=== PATIENT | female | born 1945 | race Two or more races ===

== ENCOUNTER 2024-09-11 11:32 | Emergency (ER) | payer OTHER ==
[~2024-09-11] VITALS: Ht 157.5 cm; Wt 83.0 kg
[2024-09-11] MEDS ORDERED: LOSARTAN POTASS50 MG PO (11:53)
[2024-09-11] MEDS ORDERED: FAMOTIDINE/PF 20 MG/2 ML VIAL ONE (13:55)
[2024-09-11 14:11] LABS: URINE APPEARANCE Cloudy; URINE BILIRRUBIN Moderate (NEGATIVE); URINE BLOOD Negative; URINE COLOR Dark Yellow; URINE GLUCOSE Negative (NEGATIVE); URINE KETONE Trace (NEGATIVE); URINE LEUKOCYTE Trace; URINE NITRATE Negative; URINE PROTEIN 30 (NEGATIVE)
[2024-09-11 14:15] LABS: URINE BACTERIA 166.4 uL (0.0-1933); URINE CAST 3.97 uL (0.0-1.40); URINE EPITHELIAL CELLS 75.4 uL (0.0-38.8); URINE RBC 18.2 uL (0.0-20.8); URINE WBC 19.4 uL (0.0-23.2)
[2024-09-11 14:17] LABS: HEMOGLOBIN 15.3 g/dL (12.0-15.00); MEAN CELL VOLUME 92.1 fL (80.00-100.00); MEAN CORPUSCULAR HGB CONC 34.8 g/dl (32.0-36.0); PLATELET COUNT 298 K/uL (150-450); RED BLOOD COUNT 4.78 M/uL (4.00-6.00); RED CELL DISTRIBUTION WIDTH 13.6 % (11.5-14.5)
[2024-09-11 14:30] LABS: ALBUMIN 3.3 gm/dL (3.4-5.0); BILIRUBIN TOTAL 1.61 mg/dL (0.3-1.2); CALCIUM 9.7 mg/dL (8.5-10.1); CREATININE SERUM 1.5 mg/dL (0.55-1.02); GFR 33.41; GLOBULINA 4.5 G/DL (2.4-3.5); POTASSIUM 3.55 mEq/L (3.5-5.1); TOTAL PROTEIN 7.8 gm/dL (6.4-8.2)
[2024-09-11 14:40] LABS: URINE MUCUS SCANT
[2024-09-11] MEDS ORDERED: FAMOTIDINE/PF 20 MG/2 ML VIAL IV ONE (14:45)
[2024-09-11] MEDS ORDERED: MACROBID 100 M100 MG PO (17:05)
== END 2024-09-11 17:26 | disposition home or self-care (01) ==
LOC: ER 11:35
PROVIDERS: Preventive Medicine Public Health & General Preventive Medicine
DX: N39.0 Urinary tract infection, site not specified (principal); I10 Essential (primary) hypertension; E78.5 Hyperlipidemia, unspecified